=== PATIENT | female | born 1990 | race Two or more races ===

== ENCOUNTER → 2017-01-11 | Emergency (ER) | payer MEDICAID | END | disposition left against medical advice (07) | LOC: ER 23:41 | DX: M32.9 Systemic lupus erythematosus, unspecified (principal); Z53.21 Procedure and treatment not carried out due to patient leaving prior to being seen by health care provider ==

== ENCOUNTER 2017-01-18 02:49 | Inpatient (IN) | payer MEDICAID ==
[2017-01-17 22:00] VITALS: BP 119/57
[~2017-01-18] VITALS: Ht 154.9 cm; Wt 55.0 kg
[2017-01-18 03:32] LABS: Basophils # (auto) 0 uL; Basophils % (auto) 0.4 % (0.0-2.0); DEFINITIVE VIEW TRANSMISSION; Eosinophils # (auto) 0.1 uL; Eosinophils % (auto) 1.1 % (0.0-7.0); Hemoglobin 12.7 g/dL (12.2-16.2); Lymphocytes # (auto) 1.8 uL; Lymphocytes % (auto) 24.4 % (10.0-50.0); Mean Corpuscular Hemoglobin 25.6 pg (28.0-32.0); Mean Corpuscular Hgb Conc. 32.6 g/dL (32.0-36.0); Mean Corpuscular Volume 78.6 fL (80.0-100.0); Mean Platelet Volume 8.7 fL (7.4-10.4); Monocytes # (auto) 0.6 uL; Monocytes % (auto) 8.3 % (0.0-12.0); Neutrophils # (auto) 4.9 uL; Neutrophils % (auto) 65.8 % (37.0-80.0); Platelet Count (auto) 287 10^3/uL (140-450); Red Cell Distribution Width 12.5 % (11.6-16.0); White Blood Cell 7.4 10^3/uL (4.4-10.8)
[2017-01-18 03:53] LABS: BUN/Creatinine Ratio 26.1; Calcium 8.6 mg/dL (8.5-10.1); Potassium 3.8 mmol/L (3.5-5.1)
[2017-01-18 03:55] LABS: Bilirubin, Total 0.1 mg/dL (0.2-1.0); Total Protein 8.1 g/dL (6.4-8.2)
[2017-01-18 04:25] LABS: Urine RBC None Seen /hpf (0 - 4)
[2017-01-18 04:32] LABS: Urine Bilirubin Negative (Negative); Urine Blood Negative /uL (Negative); Urine Ca Oxalate Crystal MANY (None Seen); Urine Color Yellow (Yellow); Urine Glucose Normal (Normal); Urine Ketone Negative (Negative); Urine Mucus FEW (None Seen); Urine Nitrite Negative (Negative); Urine Squamous Epithelial Cell FEW /hpf (<5)
[2017-01-18] MEDS ORDERED: SODIUM CHLORIDE 0.9% 1,000 ML IV ONE ×4 (07:00→12:00)
[2017-01-18] MEDS ORDERED: cefTRIAXone 1GM/50ML D5W 50 ML IV ONE ×2 (13:30→14:15)
[2017-01-18] MEDS ORDERED: SODIUM CHLORIDE 0.9% 1,000 ML IV SCH (13:35)
[2017-01-18] MEDS ORDERED: ALBUTEROL SULF 2.5 MG/0.5ML(0.5%) NEB SOLN NEB PRN ×2 (13:45→14:00)
[2017-01-18] MEDS ORDERED: PROCHLORPERAZINE EDISYLATE 5 MG/ML 2ML VIAL IV PRN ×2 (13:45→14:00)
[2017-01-18] MEDS ORDERED: LACTULOSE 20Gm/30ML SOLN PO PRN ×2 (13:45→14:00)
[2017-01-18] MEDS ORDERED: MORPHINE SULF INJ 2 MG/ML SYRINGE 1ML IV PRN ×4 (13:45→14:00)
[2017-01-18] MEDS ORDERED: LORazepam 0.5 MG TAB PO PRN (13:45)
[2017-01-18] MEDS ORDERED: methylPREDNISolone SOD SUCC 125 MG/2 ML VL IV ONE (13:45)
[2017-01-18] MEDS ORDERED: ACETAMINOPHEN 500 MG TAB PO PRN ×2 (13:45→14:00)
[2017-01-18] MEDS ORDERED: NITROGLYCERIN 0.4 MG SL TAB SL PRN ×2 (13:45→14:00)
[2017-01-18] MEDS ORDERED: TEMAZEPAM 15 MG CAP PO PRN ×2 (13:45→14:00)
[2017-01-18] MEDS ORDERED: HYDROcodone-ACET 5/325MG TAB PO PRN ×2 (13:45→14:00)
[2017-01-18] MEDS: SODIUM CHLORIDE 0.9% 1,000 ML IV SCH (14:00)
[2017-01-18 14:04] VITALS: BP 120/68
[2017-01-18] MEDS ORDERED: ALBUTEROL SULF 2.5 MG/0.5ML(0.5%) NEB SOLN NEB SCH (18:00)
[2017-01-18] MEDS: ALBUTEROL SULF 2.5 MG/0.5ML(0.5%) NEB SOLN NEB SCH (18:26)
[2017-01-18] MEDS: LORazepam 0.5 MG TAB PO PRN (21:09)
[2017-01-18] MEDS: FAMOTIDINE 20 MG TAB PO SCH (21:09)
[2017-01-18] MEDS: methylPREDNISolone SOD SUCC 40 MG/ML VL IV SCH (21:10)
[2017-01-18] MEDS ORDERED: FAMOTIDINE 20 MG TAB PO SCH (22:00)
[2017-01-18] MEDS ORDERED: methylPREDNISolone SOD SUCC 40 MG/ML VL IV SCH (22:00)
[2017-01-19] MEDS: ALBUTEROL SULF 2.5 MG/0.5ML(0.5%) NEB SOLN NEB SCH ×2 (00:38→06:08)
[2017-01-19] MEDS: SODIUM CHLORIDE 0.9% 1,000 ML IV SCH ×2 (01:00→10:25)
[2017-01-19 05:00] VITALS: BP 103/53
[2017-01-19] MEDS ORDERED: cefTRIAXone 1GM/50ML D5W 50 ML IV SCH (09:00)
[2017-01-19 09:17] VITALS: BP 103/40
[2017-01-19] MEDS ORDERED: AZITHROMYCIN 500MG/D5W 250ML 250 ML IV SCH (10:00)
[2017-01-19] MEDS: cefTRIAXone 1GM/50ML D5W 50 ML IV SCH (10:25)
[2017-01-19] MEDS: FAMOTIDINE 20 MG TAB PO SCH ×2 (10:26→22:00)
[2017-01-19] MEDS: AZITHROMYCIN 500MG/D5W 250ML 250 ML IV SCH (10:26)
[2017-01-19] MEDS: methylPREDNISolone SOD SUCC 40 MG/ML VL IV SCH ×2 (10:26→22:01)
[2017-01-19 15:17] VITALS: BP 113/55
[2017-01-19 17:37] VITALS: BP 111/39
[2017-01-19 21:32] VITALS: BP 105/64
[2017-01-19] MEDS: LORazepam 0.5 MG TAB PO PRN (22:01)
[2017-01-20] MEDS: SODIUM CHLORIDE 0.9% 1,000 ML IV SCH ×2 (01:00→06:00)
[2017-01-20 05:15] LABS: Basophils # (auto) 0 uL; DEFINITIVE VIEW TRANSMISSION; Eosinophils # (auto) 0 uL; Hematocrit 37.4 % (36.0-46.0); Hemoglobin 12.1 g/dL (12.2-16.2); Lymphocytes # (auto) 1.4 uL; Lymphocytes % (auto) 9.6 % (10.0-50.0); Mean Corpuscular Hemoglobin 25.5 pg (28.0-32.0); Mean Corpuscular Hgb Conc. 32.3 g/dL (32.0-36.0); Mean Corpuscular Volume 79.1 fL (80.0-100.0); Mean Platelet Volume 8.9 fL (7.4-10.4); Monocytes # (auto) 0.2 uL; Monocytes % (auto) 1.4 % (0.0-12.0); Platelet Count (auto) 272 10^3/uL (140-450); Red Cell Distribution Width 12.6 % (11.6-16.0); White Blood Cell 14.6 10^3/uL (4.4-10.8)
[2017-01-20 05:24] VITALS: BP 103/57
[2017-01-20 05:34] LABS: BUN/Creatinine Ratio 20.3; Calcium 8.3 mg/dL (8.5-10.1)
[2017-01-20 06:44] VITALS: BP 125/72
[2017-01-20 09:00] VITALS: BP 98/51
[2017-01-20] MEDS: FAMOTIDINE 20 MG TAB PO SCH (10:04)
[2017-01-20] MEDS: methylPREDNISolone SOD SUCC 40 MG/ML VL IV SCH (10:04)
[2017-01-20] MEDS: AZITHROMYCIN 500MG/D5W 250ML 250 ML IV SCH (10:04)
[2017-01-20] MEDS: cefTRIAXone 1GM/50ML D5W 50 ML IV SCH (10:04)
[2017-01-20 13:00] VITALS: BP 102/54
[2017-01-20] MEDS ORDERED: BUSP15TA60 PO (13:15)
[2017-01-20] MEDS ORDERED: AZI250T PO (13:15)
[2017-01-20] MEDS ORDERED: PRE5T PO (13:15)
[2017-01-20 15:26] VITALS: BP 102/54
[2017-01-20 17:00] VITALS: BP 103/60
== END 2017-01-20 16:42 | disposition home or self-care (01) | DRG 346 ==
LOC: ER 03:01 → TELE 03:02 → ER 13:54 → TELE-E-ADS 16:04 → TELE-CENTR 17:30
PROVIDERS: ADMIT Internal Medicine; ATTEND Nurse Practitioner Acute Care
DX: M32.14 Glomerular disease in systemic lupus erythematosus (principal); J18.9 Pneumonia, unspecified organism; R00.0 Tachycardia, unspecified; F41.9 Anxiety disorder, unspecified; R80.9 Proteinuria, unspecified; E03.9 Hypothyroidism, unspecified; M35.3 Polymyalgia rheumatica; Z83.2 Family history of diseases of the blood and blood-forming organs and certain disorders involving the immune mechanism; Z82.61 Family history of arthritis; Z84.89 Family history of other specified conditions; Z83.49 Family history of other endocrine, nutritional and metabolic diseases; Z59.0 Homelessness; Z82.49 Family history of ischemic heart disease and other diseases of the circulatory system; Z83.3 Family history of diabetes mellitus; Z84.1 Family history of disorders of kidney and ureter
CPT/HCPCS: 36415; 71020; 80048; 80053; 81001; 81025; 83735; 84100; 84443; 85025; 85379; 85652; 86141; 87040; 87086; 87205; 87493; 93005; 94640; 94761; 96360; 96361; G0434; J0696